=== PATIENT | female | born 1940 | race Caucasian/White ===

== ENCOUNTER → 2019-10-24 08:42 | Outpatient (REF) | payer MEDICARE, SELFPAY | LOC: ANHLAB 08:42 | PROVIDERS: Visit Provider Nurse Practitioner Family | DX: C44.1121 Basal cell carcinoma of skin of right upper eyelid, including canthus (principal); D49.2 Neoplasm of unspecified behavior of bone, soft tissue, and skin | CPT/HCPCS: 88305; 88331 ==

== ENCOUNTER → 2020-02-11 08:05 | Outpatient (REF) | payer MEDICARE, SELFPAY | LOC: ANHLAB 08:05 | PROVIDERS: PCP Internal Medicine; Visit Provider Nurse Practitioner | DX: C44.619 Basal cell carcinoma of skin of left upper limb, including shoulder (principal) | CPT/HCPCS: 88305; 88331 ==

== ENCOUNTER → 2021-07-20 08:25 | Outpatient (REF) | payer MEDICARE, SELFPAY | LOC: ANHLAB 08:25 | PROVIDERS: PCP Internal Medicine; Visit Provider Nurse Practitioner | DX: C44.519 Basal cell carcinoma of skin of other part of trunk (principal) | CPT/HCPCS: 88305; 88331; 88332 ==